=== PATIENT | female | born 1985 | race Asian ===

== ENCOUNTER 2019-11-02 01:45 | Inpatient (IN) ==
[~2019-11-02 01:45] MED LIST: Lidocaine 1% 20 ML MDV ONE; Naloxone 0.4 MG/ML INJ IVP PRN
[2019-11-02] MEDS ORDERED: Oxytocin 20 units/ LR 1000 mL 0 UNIT/0 ML BAG IVC ONE (02:46)
[2019-11-02] MEDS ORDERED: Oxytocin 20 units/ LR 1000 mL 20 UNIT/1,000 ML BAG IVC SCH (03:54)
[2019-11-02] MEDS ORDERED: Acetaminophen 325 MG TABLET PO PRN (03:54)
[2019-11-02] MEDS ORDERED: Ibuprofen 600 MG TABLET PO PRN (03:54)
[2019-11-02] MEDS ORDERED: Benzocaine/Menthol 56 GM AEROSOL SPRAY TP PRN (03:54)
[2019-11-02] MEDS ORDERED: Lanolin 7 G OINT...G. TP PRN (03:54)
[2019-11-02] MEDS: Prenatal Vit/FA 1 EACH TABLET PO SCH (08:26)
[2019-11-03 08:13] VITALS: BP 92/62
[2019-11-03] MEDS: Prenatal Vit/FA 1 EACH TABLET PO SCH (09:17)
[2019-11-03 12:03] LABS: Basophils % 0.3 %; Eosinophils # 0.2 K/mcL (0.0-0.6); Eosinophils % 1.4 %; Hemoglobin 11.8 g/dL (11.5-15.4); Immature Granulocytes % 1.3 % (0-4); Lymphocytes # 1.4 K/mcL (0.6-4.6); Mean Corpuscular HGB Conc 32.8 g/dL (31.6-35.5); Mean Corpuscular Hemoglobin 28.4 pg (28.0-33.3); Mean Corpuscular Volume 86.7 fL (83.0-100.0); Mean Platelet Volume 12.1 fL (9.4-12.4); Monocytes # 0.8 K/mcL (0.0-1.3); Monocytes % 6.4 %; Neutrophils # 9.3 K/mcL (1.6-8.9); Platelet Count 188 K/mcL (140-400); Red Blood Count 4.15 M/mcL (3.82-4.97); Red Cell Distribution Width 15.9 % (11.5-14.5); Segmented Neutrophils % 78.6 %; White Blood Count 11.8 K/mcL (4.3-11.1)
== END 2019-11-03 13:06 | disposition home or self-care (01) | DRG 560 ==
LOC: 1NENULAB → 1NENUOBS 04:12
PROVIDERS: ADMIT Registered Nurse; ATTEND Registered Nurse